=== PATIENT | female | born 1965 | race Caucasian/White ===

== ENCOUNTER 2019-08-21 20:53 | Emergency (ER) | payer MEDICARE ==
[~2019-08-21] VITALS: Ht 162.6 cm; Wt 102.1 kg
[2019-08-22] MEDS ORDERED: Ativan1 MG PO (00:14)
== END 2019-08-22 00:36 | disposition home or self-care (01) ==
LOC: ER 20:53
DX: F41.0 Panic disorder [episodic paroxysmal anxiety] (principal); Z79.899 Other long term (current) drug therapy
CPT/HCPCS: 93005; 93010; 99283-25

== ENCOUNTER 2020-03-07 08:15 | Day surgery (SDC) | payer MEDICARE ==
[~2020-03-07 08:15] MED LIST: Ativan1 MG PO
--- NOTE | 2020-03-07 09:57 | NUR ---
PT STATES SHE HAS PANIC ATTACKS AND SEVERE ANXIETY. EDUCATED REGARDING WHAT TO EXPECT FOR PROCEDURE AND PLAN OF CARE. PT AWAKE AND ORIENTED AND WALKED TO BED WITHOUT DIFFICULTY. IT TOOK THREE TRIES TO GET AN IV IN LAC. 20G. PT TOLERATED WELL. PT TAKEN TO CTA AFTER RECEIVING 5MG METOPROLOL IV AT 0922. B/P AND HR MAINTAINED AFTER DOSE. SEE NOTES OF VS DURING PROCEDURE. PT TOLERATED PROCEDURE WELL. PROVIDED A CALM AND COMFORTABLE ENVIRONMENT. PROVIDED FLUID AND CAFFEINE POST PROCEDURE. PT IV REMOVED, CATH INTACT, SITE CLEAR. Patient up to Ambulate independently. Gait steady. Discharge instructions reviewed with patient. Patient verbalizes understanding. Copy given to patient to take home. ALL BELONINGS RETURNED TO PATIENT.
== END 2020-03-07 23:14 | disposition home or self-care (01) ==
LOC: CT 08:15
DX: I25.10 Atherosclerotic heart disease of native coronary artery without angina pectoris (principal); I47.1 Supraventricular tachycardia; I10 Essential (primary) hypertension; E66.9 Obesity, unspecified; F41.0 Panic disorder [episodic paroxysmal anxiety]; F32.9 Major depressive disorder, single episode, unspecified; F41.9 Anxiety disorder, unspecified; G47.00 Insomnia, unspecified; G89.4 Chronic pain syndrome; D50.9 Iron deficiency anemia, unspecified; G43.909 Migraine, unspecified, not intractable, without status migrainosus; Z88.0 Allergy status to penicillin; Z79.899 Other long term (current) drug therapy; Z68.41 Body mass index [BMI] 40.0-44.9, adult; Z79.52 Long term (current) use of systemic steroids
CPT/HCPCS: 75574; Q9967